=== PATIENT | female | born 1995 | race Caucasian/White ===

== ENCOUNTER → 2017-01-15 | Outpatient (CLI) | payer OTHER ==
[~2017-01-15] MED LIST: ASPI81TA28 PO; PRT/20 PO
--- NOTE | 2017-01-16 05:47 | PAP/PSG TECHNICIAN REPORT ---
[facility] Od Grinder Operator Polysomnogram Report Study name: None Report date: 01/16/2017 Study date: 01/15/2017 Referring Physician: Vince Marte M.D. Name: WINIFRED BUSTILLO Interpreting Physician: Martha Marte M.D. Date of : 1995 Od Grinder Operator: OLEG Michael. Sex: Female Age: 21 StudyType: PSG Weight: 390 lbs Height: 21 years, Height 5' 8.5" Neck Circum:17inches BMI: 58.43 Medications: Lexapro 20mg, [id number], Metformin Patient History Study started on room air with ETCO2 monitoring in room #8. 21 yr old female here tonight for a possible split psg. She snores and never feels rested. She has difficulty falling asleep. She would like to have gastric bypass surgery. Her ESS=10/21. Neck circ=17inches Parameters Monitored NPSG: E1-M2, E2-M1, Fp1-M2, Fp2-M1, F3-M2, F4-M2, F4-M1, C3-M2, C4-M2, C4-M1, O1-M2, O2-M2, O2-M1, T3-M2, T4-M1, P3-M2, P4-M1, CHIN1, CHIN2, HR, EKG, Legs, PFLOW, SNOR, FLOW, CFLOW, Tidal Volume, THOR, ABDO, SpO2, PLTH, CPRESS, ETCO2 Wave, ETCO2, pH Sleep Architecture Sleep Stages Time at Lights Off 10:32:32 PM STAGES Time (min.) TST (%) Time at Lights On 5:20:02 AM Wake 53.0 -- Total Recording Time (TRT) 407.50 min. N1 11.0 3 Total Sleep Period (TSP) 361.5 min. N2 195.0 55 Total Sleep Time (TST) 354.5min. N3 73.0 21 Awake Time 53.0 min. REM 75.5 21 Wake after Sleep Onset 7.0 min. Sleep Efficiency (SE) 87 % Sleep Onset Latency (BRANDYN) 46.0 min. Number of Stage 1 Shifts None Awakenings 11 Stage Changes 54 Number of REM periods 6 REM 75.5 21 REM Latency 65.5 min. NREM 279.0 79 Body Position Analysis Supine Right Left Side Prone Vertical Total Sleep Time (min.) 254.6 68.9 9.1 78.00 66.5 0.0 Total Sleep Time (%) 61% 19% 3% 22 17% N/A% Total Sleep Time REM (min.) 69.0 6.5 0.0 None 0.0 0.0 Total Sleep Time NREM (min.) 146.1 62.4 9.1 None 61.4 0.0 Intermittent Wake (min.) 39.5 7.9 0.5 None 5.1 0.0 Total Sleep Period (%) 61% None None None None None Arousals Myoclonus (PLM) * Events Count Index Events Count Index Spontaneous 18 3 Events Awake (PLMW) 73 82.6 Respiratory 0 0.0 Events Asleep w/ Arousal (PLMA) 11 1.9 PLM 11 2 Events Asleep w/o Arousal (PLMS) 71 12.0 Snoring 3 1 Total Asleep 82 13.9 Total 32 5 Total 155 23 Respiratory Analysis * CA OA MA CH H RERA Total Count 0 1 0 0 29 0 30 Index 0.0 0.2 0.0 0 4.9 0 5.1 Mean Duration 0.0 15.4 0.0 0.00 14.5 0.0 14.5 Longest Duration 0.0 15.4 0.0 0.00 0.0 0.0 46.5 Respiratory Event Summary Total Supine ~Supine Right Left Prone REM NREM Apneas Count 1 0 1 1 0 0 0 1 Index 0.2 0 0 0.9 0.0 0 0 0 Hypopneas (4% Desat) Count 29 27 2 2 0 0 24 5 Index 4.9 7.5 1 1.7 0.0 0.0 19.1 1.1 Apneas & All Hypopneas Count 30 27 3 3 0 0 24 6 Index 5.1 8 1 3 0 0 19.1 1.3 Respiratory Events (Pediatric Associate+All Hyp+RERA) Count 30 27 3 3 0 0 24 6 Index 5.1 8 1 2.6 0.0 0.0 19.1 1.3 Respiratory Related Arousal Count 0 27 0 0 0 0 0 0 Index 0.0 0 0 0 0 0 0 0 Snoring Analysis Supine Right Left Prone REM NREM Total Snore duration 1.0 min Snores count 14 3 3 1 2 19 21 Snore mean duration 2.9 Sec Snores index 4 3 20 1 1.6 4.1 3.6 TST with snoring (%) 0.3% SpO2 Analysis Total REM NREM Awake <50% 0.0 min. 0.0 min. 0.0 min. 0.0 min. 51 - 60% 0.0 min. 0.0 min. 0.0 min. 0.0 min. 61 - 70% 0.0 min. 0.0 min. 0.0 min. 0.0 min. 71 - 80% 0.1 min. 0.1 min. 0.0 min. 0.0 min. 81 - 90% 20.2 min. 17.1 min. 2.8 min. 0.2 min. 91 - 100% 386.4 min. 58.3 min. 276.2 min. 52.0 min. Average 93 92 93 95 Minimum SpO2 80 80 87 90 Desaturation Event Index 9.6 30.2 4.7 5.7 # Desat. Events below 89% 30 24 6 N/A Time(%) with Saturation below 89% 1.8 1.7 0.1 0.0 Time(min.) with Saturation below 89% 7.5 6.9 0.5 0.0 Heart Rate Analysis End Tidal CO2 Analysis Min (bpm) Max (bpm) Average (bpm) TSP (mins) % of TSP Awake 62 127 76 Above 55 mmHg 0.0 0.0 NREM 59 103 75 50-55 mmHg 0.3 0.1 REM 58 87 71 45-50 mmHg 40.2 11.3 Overall 58 103 74 40-45 mmHg 177.6 50.1 35-40 mmHg 115.6 32.6 30-35 mmHg 20.7 5.8 Average ETCO2 0.2 Supplemental O2 Values Minimum O2 level: None Value Start Time End Time Od Grinder Operator Comments Ms. Bustillo slept in the right, left, supine and prone positions. No cardiac arrhythmia noted. Some leg movements were noted. No bruxism noted. Snoring was noted and scored as a 1 on a scale of 1 through 5. (0=no snoring, 5=snoring loud enough to be heard through a closed door or down the [address] way). She did not use the restroom during the night. She stated that she slept better than usual. The final report will be interpreted and signed by a sleep physician. The completed physician report will then be placed in the patient medical record. Therapy (cm H2O) 0 TIB (min.) 407.5 TST (min.) 354.5 Sleep Onset (min.) 46.0 REM Onset From Sleep (min.) 65.5 Sleep Efficiency % 87 Wakefulness (%) 13 Wakefulness (min.) 53.0 NREM 1 (%) 3 NREM 1 (min.) 11.0 NREM 2 (%) 55 NREM 2 (min.) 195.0 NREM 3 (%) 21 NREM 3 (min.) 73.0 REM (%) 21 REM (min.) 75.5 # Arousals 32 Arousal Index 5 # Snore 21 Snore Index 3.6 AHI 5.1 AHI Supine 8 AHI Non-Supine 1 NREM AHI 1.3 REM AHI 19.1 RDI 5.1 # Obstructive Apnea 1 # Central Apnea 0 # Mixed Apnea 0 # Hypopneas 29 RERAs 0 Total Respiratory Events 35 Time Below SpO2 89% (min.) 7.5 Mean NREM SpO2 (%) 93 Mean REM SpO2 (%) 92 Mean Sleep SpO2 (%) 93 Min NREM SpO2 (%) 87 Min REM SpO2 (%) 80 Position Supine (min.) 254.6 Position Non-supine (min.) 139.4 LM Index Sleep 13.9 LM Index NREM 17.4 LM Index REM 0.8 Mean Heart Rate (bpm) 74 Min Heart Rate (bpm) 58
--- NOTE | 2017-01-23 09:28 | POLYSOMNOGRAPH REPORT ---
REFERRING PERSON: Dr. Teodora Marte. ALLERGY AND IMMUNOLOGY CHIEF: Neris Bautista. Ms. Bustillo is a 21-year-old female sent for a possible split night sleep study. She snores and feels unrested upon awakening in the morning. She does have difficulty falling asleep. She is hoping to have gastric bypass surgery. Her [place] sleepiness scale score on the evening of this study is 10/21. She does not drive. BMI is 58.43. Following the technical and digital specifications of the [employer] [employer] (AASM) a standard diagnostic polysomnogram was performed monitoring EEG, EOG, EMG (chin and leg deviations), oxygen saturation, body position, digital video, respiratory effort and airflow. The sleep Stage and event scoring was based on the AASM Manual for the Scoring of Sleep and Associated Events 2007 edition. Apneas are defined as a drop in the peak thermal sensor excursion by >90% of baseline for at least 10 seconds. Hypopneas were scored using the 4% oxygen desaturation rule (4A-[employer]) and a decrease in the nasal pressure excursions by >30% of baseline for at least 10 seconds. Respiratory effort-related arousal (RERA's) is defined as a sequence of breaths lasting at least 10 seconds characterized by increasing respiratory effort or flattening of the nasal pressure waveform leading to an arousal from sleep when the sequence of breaths does not meet criteria for an apnea or hypopnea. Apnea Hypopnea index (AHI) is defined as the number of apneas and hypopneas occurring in an hour of sleep. Respiratory disturbance index (RDI) is defined as the number of apneas, hypopneas, and RERA's occurring in an hour of sleep. Ms. Bustillo's total sleep period time was 361.5 minutes. Total sleep time was 354.5 minutes. Sleep efficiency was 87%. Latency to sleep onset was 46 minutes with wake after sleep onset of 7 minutes. Total non-REM sleep time was 279 minutes. She spent 3% of that time in N1 sleep, 55% in N2 sleep and 21% in N3 sleep. REM latency was 65.5 minutes. Total REM sleep time was 75.5 minutes or 21% of total sleep time. There were 32 cortical arousals from sleep. 3 of these arousals were due to snoring, 11 due to periodic limb movements of sleep and 18 were spontaneous. There were 82 periodic limb movements noted. Limb movement index was 13.9. Limb movement with arousal index was 1.9. On this study, there was 1 obstructive apnea, no central apneas and no mixed apneas. There were 29 hypopnea and no RERA. Apnea-hypopnea index was 5.1 consistent with very mild sleep apnea. 21 snoring events were recorded. Total sleep time with snoring was 0.3%. Mean saturation during sleep was 93% with desaturations to 80%. Saturations were less than 89 for only 7.5 minutes of recorded time. This is mild nocturnal hypoxemia. There was no cardiac ectopy noted on this study. This patient's heart rate ranged from a low of 58 beats per minute to a high of 103 beats per minute during sleep. End End-tidal CO2 was recorded on this test. End tidal CO2s were between 50 and 55 mmHg for 0.1% of total sleep period time, between 45 and 50 mmHg for 11.3%, between 40 and 45 mmHg for 50.1% of total sleep period time, between 35 and 40 mmHg for 32.6% and between 30 and 35 mmHg for 5.8% of total sleep period time. IMPRESSION AND PLAN: 21-year-old female who plans on having gastric bypass surgery for morbid obesity who has very mild sleep apnea and nocturnal hypoxemia on this study. This patient may benefit from positive airway pressure therapy until she loses weight. She could be started on auto titrating CPAP with pressures of 5-15 cm and a download from her machine reviewed in 1 month both to check compliance as well as AHI. This will eliminate snoring, nocturnal hypoxemia as well as apnea. As she loses weight, the amount of pressure she needs to keep her airway open will likely reduce or her apnea will resolve. Of note, most of this patient's events were present during REM supine sleep.
== END | disposition home or self-care (01) ==
LOC: C.NEUR 20:00
PROVIDERS: ATTEND Family Medicine
DX: E66.2 Morbid (severe) obesity with alveolar hypoventilation (principal); R06.83 Snoring; G47.10 Hypersomnia, unspecified

== ENCOUNTER 2017-12-21 04:52 | Emergency (ER) | payer OTHER ==
[~2017-12-21] VITALS: Ht 177.8 cm; Wt 166.5 kg
[2017-12-21 05:03] VITALS: TEMP 36.4; Ht 177.8 cm; Wt 166.5 kg
[2017-12-21] MEDS ORDERED: CHLO1TAB50 PO (05:19)
[2017-12-21] MEDS ORDERED: BENZ10LO2 PO (05:19)
[2017-12-21 05:45] VITALS: BP 161/87; PULSE 74; O2SAT 97
--- NOTE | 2017-12-21 08:41 | EMERGENCY ROOM VISIT NOTE ---
ED Visit Note First contact with patient: 05:08 CHIEF COMPLAINT: Sore throat HISTORY OF PRESENT ILLNESS: This 22-year-old female patient presents to the emergency department complaining of increasing pain in the throat for the past 3 or 4 days, gradual in onset, worse with swallowing. They rate the pain as sharp and 8/10. They are able to swallow. The patient has no had a fever. No rash. Denies any posterior neck pain or stiffness. No difficulty breathing. Symptoms came on gradually. There has been no chest pain, no abdominal pain, no nausea or vomiting. Patient denies any cough, rhinorrhea, congestion, or ear pain. The patient has taken several [id number] medications for their symptoms. REVIEW OF SYSTEMS: A 6 system review of systems was completed with pertinent positives and negatives in the HPI. ALLERGIES: No known allergies MEDICATIONS: No chronic medications PMH: Otherwise healthy SOCIAL HISTORY: Employed and lives locally PHYSICAL EXAM: Vital Signs: Reviewed Nurse's notes. GENERAL: White female, in no acute distress, non toxic in appearance, well developed, well nourished. MENTAL STATUS: Alert and oriented to person place and time. SKIN: Clear and dry, no eruptions, or rashes. No cyanosis, no petechiae. EARS: External auditory canals clear, tympanic membrane pearly cotton without erythema or effusion bilaterally. EYES: Pupils equal round and reactive to light and accommodation. Conjunctivae without injection, sclerae without icterus. Extraocular movements intact. NOSE: Patent, turbinates inflammed with no discharge. No sinus tenderness. MOUTH: Mucous membranes moist. Tonsils are enlarged and erythematous with exudate. The Pharynx is inflamed and slightly swollen. Pharynx without postnasal drip. Uvula is midline and no abscess is seen. NECK: Supple without nuchal rigidity. Anterior cervical lymphadenopathy without posterior cervical, or auricular, or submandibular lymphadenopathy. HEART: Regular rate and rhythm without murmurs gallops or rubs. LUNGS: Clear to auscultation bilaterally without wheezes, rales or rhonchi. ABDOMEN: Positive bowel sounds x 4. Normal tympanic percussion. Soft, nontender, without masses or organomegaly. ED COURSE: I examined the patient. A rapid strep test was negative. A backup culture was sent. The patient was instructed on the plan below and was discharged home in good condition. Problem List Medical Problems: (1) Headaches Status: Chronic Current/Historical Medications Scheduled PRN Benzocaine-Menthol (Mouth-Thro (Cepacol Sore Throat), 1 ANGELITO PO UD PRN for SORE THROAT Chlorpheniramine-Phenylephrine ([place] Plus Cold), 1 TAB PO UD PRN for SORE THROAT Allergies Coded Allergies: No Known Allergies (Unverified , 02/24/13) Vital Signs Date Time Temp Pulse Resp B/P (MAP) Pulse Ox O2 Delivery O2 Flow Rate FiO2 12/21/17 05:45 74 16 161/87 97 12/21/17 05:03 36.4 76 20 137/81 99 Room Air Departure Information Impression Primary Impression: Sore throat Dispostion Home / Self-Care Condition GOOD Referrals No Doctor, Assigned (PCP) Forms HOME CARE DOCUMENTATION FORM, IMPORTANT VISIT INFORMATION Patient Instructions [facility] Additional Instructions You were seen and evaluated today on an emergency basis only. This is not a substitute for, or an effort to provide, complete comprehensive medical care. It is not possible to recognize and treat all injuries or illnesses in a single emergency department visit. For this reason it is recommended that you followup with your primary care physician next week for any ongoing or persistent symptoms. For baseline pain relief you may alternate ibuprofen and acetaminophen every 4 hours for pain control. Take 600 mg ibuprofen (Advil) and then 4 hours later take 1000 mg acetaminophen (Tylenol). Do not take more than 3000 mg acetaminophen in a single day. You are welcome to return to the emergency department anytime with new, worsening, or concerning symptoms.
== END 2017-12-21 05:50 | disposition home or self-care (01) ==
LOC: C.EDB 04:54
DX: J02.9 Acute pharyngitis, unspecified (principal)